=== PATIENT | female | born 1960 | race Caucasian/White ===

== ENCOUNTER 2016-10-22 14:50 | Inpatient (IN) | payer BC ==
[~2016-10-22] VITALS: Ht 139.7 cm; Wt 78.0 kg
--- NOTE | ~2016-10-22 | CATH ---
Cardiac Diagnostic Report Demographics Patient Name CHARU Hernández Gender Female Date of 1960 Age 56 year(s) Patient Number [id number] Date of Study 10/23/2016 Visit Number [id number] Room Number 407 Corporate ID Ht 134.62 cm Wt 77.56 kg Accession Number [id number] BSA 1.6 m Referring King Melchor Danielson MD Primary Physician Physician Performing King Melchor Danielson MD Secondary Physician Physician Diagnostic King Melchor Danielson MD Assisting Physician Physician Interventional Physician [place] Polisher Physician Findings and Conclusions Diagnostic Findings and Conclusion Mild Aortic stenosis. Non-obstructive CAD. Diagnostic Recommendations Medical management. Procedure Description The patient was brought to the diagnostic cardiac catheterization laboratory in the fasting, non-sedated state. Informed consent was obtained in the written and verbal form after the risks and benefits were explained. The patient had no further questions and agreed to proceed. The planned puncture-incision site(s) were shaved and prepped with ChloraPrep and draped in the usual sterile manner. Conscious sedation, supplemental oxygen, and pain control medications were delivered by a registered nurse under physician guidance. Surface ECG rhythm, blood pressure measurement, and pulse oximetry were monitored throughout the procedure. Arterial access. The right radial access site was infiltrated with lidocaine. The right radial vessel was entered with the Seldinger technique. A 6F radial sheath was advanced into the vessel and used for catheter placement. Selective left coronary angiography. A catheter was advanced into the left coronary vessel ostium under Fluoroscopic guidance. Contrast was injected by hand. Images were obtained in multiple projections. Selective right coronary angiography. A catheter was advanced into the right coronary vessel ostium under fluoroscopic guidance. Contrast was injected by hand. Images were obtained in multiple projections. Left heart catheterization. A catheter was advanced across the aortic valve to the left ventricle under fluoroscopic guidance. Resting hemodynamics were obtained. Arterial artery hemostasis was achieved using a TR band. The patient was transferred to a regular nursing floor via cart accompanied by a nurse. The patient left the laboratory in stable condition. Diagnostic Cath Status: Urgent Procedure Procedure Type Diagnostic procedure:Ventriculogram:, Left, Angiography:, Coronary Angios w/[facility] Indications: Hypertension, Carotid artery disease and Tobacco use-current. The procedure was explained in detail to the patient. Risks, complications and alternative treatments were reviewed. Written consent was obtained. Medications Reviewed with Patient prior to Procedure. Complications: No Complication. Angiographic Findings Dominance: Right Cardiac Arteries and Lesion Findings LMCA: Abnormal. Lesion on LMCA: Distal subsection.20% stenosis . LAD: Abnormal.luminal irregularities LCx: Abnormal. Lesion on Mid CX: 40% stenosis . Lesion on 2nd Ob Ale: Proximal subsection.70% stenosis . Comments:small vessel RCA: Normal (0% Stenosis). Coronary Tree Procedure Data Procedure Date Date: 10/23/2016Start: 11:06 AM Entry Locations - Percutaneous access was performed through the Right Radial artery (Primary location). A 6 Fr sheath was inserted. Hemostasis was successfully obtained using a TR band. Procedure Medications Order and Administration + + +-------+--------+ !Time !Medication !Dosage !Route ! + + +-------+--------+ !10/23/2016 !Oxygen !2 l/min!NC ! !11:02 AM ! ! ! ! + + +-------+--------+ !10/23/2016 !Versed !2 mg !I.V. ! !11:04 AM ! ! ! ! + + +-------+--------+ 10/23/2016 !Fentanyl !50 mcg !I.V. ! !11:04 AM ! ! ! ! + + +-------+--------+ !10/23/2016 !Sodium Chloride !10 ml !I.V. ! !11:05 AM ! ! ! ! + + +-------+--------+ !10/23/2016 !Versed !1 mg !I.V. ! !11:07 AM ! ! ! ! + + +-------+--------+ !10/23/2016 !Fentanyl !25 mcg !I.V. ! !11:07 AM ! ! ! ! + + +-------+--------+ !10/23/2016 !SF Radial Cocktail: 200mcg Nitro, 2.5 mg ! !I.A. ! !11:09 AM !Verapamil, 5000u Heparin ! ! ! + + +-------+--------+ Devices Used - A6F TIG CATHETER. Comments: coronary angiograms. - ACATH 6FR FL3.5 CATHETER 100CMwas used for:Left coronary angiography. Contrast Material - Isovue 07129 ml Fluoroscopy Time: Diagnostic: 2:06 minutes. Total: 2:06 minutes. Fluoroscopy Dose: Diagnostic: 374 mGy. Total: 374 mGy. Estimated Blood Loss: 10 ml. Medical History Allergies - No known allergies. Risk Factors The patient risk factors include:peripheral arterial disease, hypertension, last creatinine: 0.9 mg/dl, creatinine clearance: 87.5 ml/min and Current/Recent(w/in 1 year) tobacco use. Admission Data Admission Date: 10/23/2016 Admission Time: 11:25 AM Insurance Payors: [employer] insurance. Clinical Evaluation Leading to Procedure Diagnosed on 10/23/2016 12:00 AM. - The patient's CAD presentation was assessed as: Non-STEMI. VA LV function assessed as:Normal. Ejection Fraction - 10/23/2016 - Method: LV gram. EF%: 60. Hemodynamics Condition: Rest O2 Consumption: Estimated: 160.12Heart Rate: 79 bpm Pressures (mmHg) +-----+ + !Site !Pressure ! +-----+ + !LV !147/5 ,12 ! +-----+ + !AO !123/64 (88) ! +-----+ + !LV !150/7 ,12 ! +-----+ + !AO !104/60 (76) ! +-----+ + Valve Gradients and Areas + +---------+---------+---------+ +---------+ + !Valve !Peak !Mean !Area !Index !Flow !Source ! + +---------+---------+---------+ +---------+ + !Aortic !28 !24 ! ! ! ! ! + +---------+---------+---------+ +---------+ + !Aortic !28 !24 ! ! ! ! ! + +---------+---------+---------+ +---------+ + Shunts Oxygen Values O2 Capacity 194.48 O2 Consumption 160.12 Discharge Data Discharge Date: 10/24/2016 Hospital Status: Inpatient Signatures
--- NOTE | ~2016-10-22 | ECH ---
Transthoracic Echocardiography Report (TTE) Demographics Patient Name HOME BOX Date of Study 10/23/2016 Patient Number [id number] Visit Number [id number] Date of 1960 Room Number 407 Accession Number [id number] Gender Female Age 56 year(s) Referring Patel VAUGHN Site Worker Renetta Patel Physician Corey ALONSO Alvarez Physician Interpreting Clinton Medeiros MD Nurse Esthetician Physician Supervising Ordering Physician King Melchor Danielson MD, MD/P Nurse Stress Leak Inspector Conclusions Summary Technically adequate exam. The estimated left ventricular ejection fraction is 55%. The left ventricle is mildly dilated . Mild concentric left ventricular hypertrophy. The left atrium is moderately dilated by LA volume index measurement. There is evidence of a patent foramen ovale by color Doppler. Informed consent was obtained, bubble study was done, there is no evidence for a PFO or ASD. Mild mitral valve stenosis. The mean gradient is 8 mmHg. Mild-moderate mitral regurgitation by color Doppler. The aortic valve was not well imaged. There is mild aortic stenosis by the Continuity Equation. The peak velocity is 2.4 m/s, the mean gradient is 13 mmHg, and the valve area based on the continuity equation is 1 cm2, stroke volume index is 29 ml/m2. Peak velocity obtained in apical view. There is no aortic regurgitation by color Doppler. Mild-moderate eccentric tricuspid regurgitation by color Doppler. There is moderate pulmonary hypertension. The pulmonary pressure (RVSP) is 48 mmHg. Procedure Type of Study TTE procedure:Echo Complete SF. Procedure Date Date: 10/23/2016 Start: 02:15 PM Technical Quality: Adequate visualization Indications:Chest pain, Elevated Troponin and Hypertension. Additional Indications:NSTEMI Appropriate Use Criteria: 9 Height: 53 inches Weight: 171 pounds BSA: 1.6 m Rhythm: NSR HR: 87 bpm BP: 138/85 mmHg Allergies - No known allergies. M-Mode/2D Measurements LV Diastolic Dimension: 5.31 cm LV Systolic Dimension: 3.18 cm LV Septum Diastolic: 0.98 cm LV PW Diastolic: 0.95 cm AO Root Dimension: 2.85 cm Cardiac Output: 4.02 l/min LA Dimension: 3.4 cm Cardiac Index: 2.51 l/min*m RV Diastolic Dimension: 2.2 cm LA volume index: 47 ml/m LVOT: 1.76 cm LVOT VTI: 19.02 cm RV Base: 2.4 cm LV Stroke volume: 46.25 ml RV Mid: 1.3 cm LV Stroke volume index: 28.91 ml/m TAPSE: 2.4 cm TDI-S': 11 cm/s Doppler Measurements AV Peak Velocity: 2.4 m/s MV Peak E-Wave: 2.07 m/s AV Peak Gradient: 23.04 mmHg MV Peak A-Wave: 1.36 m/s AV Mean Gradient: 13.49 mmHg MV E/A Ratio: 1.53 LVOT Peak Velocity: 0.86 m/s MV P1/2t: 106 msec AV Area (Continuity):1.02 cm TR Velocity:3.34 m/s MV Deceleration Time: 365.4 msec TR Gradient:44.62 mmHg MV Area (PHT): 2.08 cm Estimated RAP:3 mmHg PV Peak Velocity: 0.92 m/s Estimated RVSP: 48 mmHg PV Peak Gradient: 3.42 mmHg E' Septal Velocity: 0.08 m/s Estimated PASP: 47.62 mmHg E' Lateral Velocity: 0.11 m/s A' Septal Velocity: 0.06 m/s A' Lateral Velocity: 0.05 m/s RA Area: 14.97 cm Findings Left Ventricle The left ventricle is mildly dilated . Mild concentric left ventricular hypertrophy. Diastolic assessment reveals normal relaxation. Right Ventricle Normal right ventricle structure and function. Left Atrium The left atrium is moderately dilated by LA volume index measurement. There is evidence of a patent foramen ovale by color Doppler. Informed consent was obtained, bubble study was done, there is no evidence for a PFO or ASD. Right Atrium Normal right atrial size. Mitral Valve Mild mitral valve stenosis. The mean gradient is 8 mmHg. Mild-moderate mitral regurgitation by color Doppler. Aortic Valve The aortic valve was not well imaged. There is mild aortic stenosis by the Continuity Equation. The peak velocity is 2.4 m/s, the mean gradient is 13 mmHg, and the valve area based on the continuity equation is 1 cm2, stroke volume index is 29 ml/m2. Peak velocity obtained in apical view. There is no aortic regurgitation by color Doppler. Tricuspid Valve Normal tricuspid valve structure and function. Mild-moderate eccentric tricuspid regurgitation by color Doppler. There is moderate pulmonary hypertension. The pulmonary pressure (RVSP) is 48 mmHg. Pulmonic Valve The pulmonic valve is not well visualized. Trivial pulmonic valve regurgitation by color Doppler. Pericardial Effusion No evidence of pericardial effusion. Miscellaneous Visualized portions of the aortic root and ascending aorta appear normal in size. Pleural Effusion No evidence of pleural effusion. Signature
--- NOTE | 2016-10-24 08:58 | HP ---
ADMIT: 10/22/2016 RM/LOC: 407 [facility] MR#: [id number] [id number] [place], [place] [address] [address] [place] [id number] History and Physical SEX: F AGE: 56 : 1960 DATE OF SERVICE: CHIEF COMPLAINT: Elevated blood pressure. HISTORY OF PRESENT ILLNESS: Ms. Whitley is a 56-year-old female, who generally sees one of the nurse practitioners in our clinic as well as her note teller, who presented to the Emergency Department yesterday evening with elevated blood pressures. She has a significant past medical history for carotid vascular disease and sees Dr. Ashley for this. She has been on Plavix, but she has not been following up and therefore, ran out of her medication about two weeks ago. She did get a temporary supply sent to the pharmacy, but she did not go pick it up. She also continues to smoke. She said she was in her usual state of health until yesterday morning when she woke up, and felt like her heart was pounding and beating fast. She checked her blood pressure and it was 180 systolic. She called into work and tried to rest, but the symptoms did not improve, therefore she presented to the Emergency Department. Upon evaluation, she was given nitroglycerin. This did not improve her symptoms including her blood pressure. She actually denies any chest pain. 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 She has no diaphoresis or nausea as well. She was given IV metoprolol as well as oral lisinopril, and blood pressures did improve. Symptoms are better this morning. There was also concern that she had a PE, so a CTA was performed at the Emergency Department and was negative. Currently this morning, she feels better, just fatigue. PAST MEDICAL HISTORY: 1. Carotid stenosis, status post what appears to be bypass but awaiting Cardiology records to confirm. 2. Tobacco abuse. Of note, she denies any past medical history of hypertension. MEDICATIONS: Plavix 75 mg daily, of which she has been noncompliant for the past two weeks. ALLERGIES: NO KNOWN MEDICAL ALLERGIES. SOCIAL HISTORY: The patient lives independently and is able to care for all of her activities of daily living. She does continue to smoke. FAMILY HISTORY: Unknown. REVIEW OF SYSTEMS: As per HPI. Otherwise, reviewed and negative. PHYSICAL EXAMINATION: VITAL SIGNS: Currently with temperature of 98.8, pulse 76, respiratory rate 16, blood pressure 138/85, oxygen saturation 97% on room air. In the Emergency Department, of note, her blood pressure reached a maximum of 204/121 with a heart rate of 102. GENERAL: The patient is awake, alert, in no acute distress. ADMIT: 10/22/2016 RM/LOC: 407 [facility] MR#: [id number] [address] [place], [place] [id number] [address] [place] [id number] History and Physical SEX: F AGE: 56 : 1960 HEENT: Within normal limits. Nasal cannula is in place. HEART: Regular rate and rhythm. No murmurs. LUNGS: Diminished with few crackles at the bases. EXTREMITIES: Warm and dry. No pretibial edema. ABDOMEN: Soft, nontender, nondistended. Normal bowel sounds. NEUROLOGIC: Cranial nerves II through XII grossly intact. No focal neurologic deficit. PSYCHIATRIC: Mood and affect are within normal limits. LABORATORY DATA: Please see electronic record for full details, but of note, her initial troponin was 0.79. EKG shows sinus rhythm with a heart rate of 88. IMAGING: CTA shows findings consistent with bronchitis, but negative for PE. Chest x-ray shows no other changes. ASSESSMENT AND PLAN: 1. Hypertensive urgency. This has improved with just IV metoprolol as well as initiating oral lisinopril. 2. Elevated troponin concerning for non ST elevation versus cardiac demand from her hypertensive crisis. 3. Tobacco abuse. 4. Carotid vascular disease. 5. Noncompliance with her Plavix. DISPOSITION: Cardiology has been consulted and appreciate their recommendations and further cardiac workup today. Tobacco cessation was strongly encouraged. Tyra Monge MD/ joselito JOB #: [id number] CC: Tyra Monge, Attending Physician Tyra Monge, Family Physician
--- NOTE | 2016-10-24 11:08 | ER ---
ADMIT: 10/22/2016 RM/LOC: 407 [facility] MR#: [id number] [id number] [place], [place] [address] [address] [place] [id number] Emergency Room Report SEX: F AGE: 56 : 1960 DATE: 10/22/2016 ADDENDUM: This patient comes into the ER because this morning she woke up with a sudden onset of shortness of breath. She states that she became short of breath and had palpitations that she could feel at times her heart was pounding. 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 She states that she just has a general feeling of not feeling well. In the emergency room, initially her vitals were stable. She had a normal pulse, and O2 sat was 98%. Her troponin came back at 0.791 and CK-MB was 5.0. I had concerns for a PE since she is a smoker and she had sudden onset of her symptoms. CTA was negative for PE. While in the ER, her blood pressure did rise and was about 200/115. I did consult with Dr. Manning concerning treatment of this patient. She was given nitroglycerin that was repeated, which really did not bring down her blood pressure then I ordered Lopressor 5 mg IV. I spoke with Dr. Monge, and this patient will be admitted by her. DIAGNOSES: 1. Shortness of breath. 2. Elevated troponin. 3. Hypertension. Please see my T-sheet. GARY Monterroso / Frank Manning MD / lexil JOB #: [id number] CC: Tyra Monge MD, Attending Physician Pau Fernandez, Family Physician
[2016-10-25] MEDS ORDERED: NITROSTAT0.4 MG SL (16:53)
[2016-10-25] MEDS ORDERED: LIPITOR DPS20 MG PO (16:53)
[2016-10-25] MEDS ORDERED: ASA CHILDREN'S81 MG PO (16:53)
[2016-10-25] MEDS ORDERED: ZESTRIL DPS10 MG PO (16:53)
[2016-10-25] MEDS ORDERED: TYLENOL DPS325 MG PO (16:53)
[2016-10-25] MEDS ORDERED: COREG DPS6.25 MG PO (16:53)
[2016-10-25] MEDS ORDERED: PLAVIX75 MG PO (16:53)
[2016-10-25] MEDS ORDERED: CHANTIX0.5 MG (16:54)
--- NOTE | 2016-10-27 08:38 | DS ---
ADMIT: 10/23/2016 RM/LOC: 407 [facility] MR#: [id number] [address] [place], [place] [address] [facility] [address] [place] [address] Discharge Summary SEX: F AGE: : ADMISSION DATE: 10/23/2016 DISCHARGE DATE: 10/24/2016 CONSULT: Cardiology, Melchor Melgar MD DISCHARGE DIAGNOSES: 1. Non-STEMI (ST elevation myocardial infarction). 2. Coronary artery disease. 3. Chronic hypertension. 4. Dyslipidemia. 5. Tobacco abuse. 6. Known bicuspid aortic valve and coarctation. 7. Known carotid stenosis status post bypass. 8. Noncompliance. PROCEDURES: Cardiac catheterization October 23, [address] Melgar. REASON FOR ADMISSION: The patient was admitted with shortness of breath and elevated blood pressure. Please see H and P for full details. HOSPITAL COURSE: The patient was admitted to telemetry monitoring for cardiac rule out. By the time of admission, she was without chest pain, just had some fatigue. Cardiac enzymes were trended, and her troponin did increase. It was 0.79 on admission and reached a maximum of 1.33 before trending down and was 1.05 at last check. EKG showed no ST elevation. Cardiology was consulted and recommended cardiac catheterization, which was performed on October 23, 2016. There was mild coronary artery disease but nothing that required a PCI or a CABG. Medication management was recommended, and she was initiated on NEISHA inhibitor, beta jared, aspirin, and statin. We will continue with her home Plavix. She was symptom free by day of discharge. DISCHARGE MEDICATIONS: 1. Aspirin 81 mg daily. 2. Coreg 6.25 mg b.i.d. 3. Lipitor 20 mg daily. ADMIT: 10/23/2016 RM/LOC: 407 [facility] MR#: [id number] [address] [address] [address] [place] [address] Discharge Summary SEX: F AGE: : 6. Plavix 75 mg daily. 5. Zestril 10 mg daily. 6. Tylenol p.r.n. 7. Nitroglycerin sublingual p.r.n. DISCHARGE INSTRUCTIONS: The patient was discharged to home in stable condition. She will continue with cardiac diet. She will follow up with myself in 2 weeks and Cardiology as ordered. Smoking cessation was also encouraged, and she was agreeable to initiation of Chantix. This will be begun as an outpatient. Routine chest pain precautions were reviewed. Greater than 30 minutes was spent in discharge. Tyra Monge MD/ ajf JOB #: [id number] CC: Tyra Monge MD, Attending Physician Tyra Monge MD, Family Physician
--- NOTE | 2016-10-29 14:02 | CO ---
ADMIT: 10/22/2016 RM/LOC: [facility] MR#: [id number] [address] [address] [facility] [address] [place] [id number] Consultation SEX: F AGE: 56 : 1960 DATE OF CONSULTATION: 10/23/2016 ATTENDING PHYSICIAN: Tyra Monge CONSULTING PHYSICIAN: Melchor Melgar MD REASON FOR CONSULTATION: Elevated troponin. MONA Joshi dictating for Dr. Melgar. HISTORY OF PRESENT ILLNESS: The patient is a pleasant 56-year-old female, whom I had the opportunity to consult for Cardiology regarding her elevated troponins. The patient has a personal cardiac history. The patient states she has a history of coarctation of the aorta, bicuspid aortic valve, unmedicated hypertension, dyslipidemia, and tobacco abuse. The patient states that yesterday 10/22, she woke up around 07:30 a.m. with shortness of breath, pounding chest, and elevated blood pressure. The patient states that she tried changing positions and trying to go back to sleep, but this did not relieve her symptoms. Later that morning, she called her PCP in the clinic and they encouraged her to go to the Emergency Department. Around 02:30 p.m. on 10/22, she arrived at [facility] Emergency Department. She states that the symptoms she was having did not go away until after she received three tablets of nitroglycerin. The patient only takes Plavix as her current medications, but she has not been taking this for the last couple weeks because she ran out and has not been able to go in to the pharmacy to lease picker her new prescription. At this time, she is wearing oxygen because she was desaturated and she normally does not wear oxygen at home. She admits that she has never had any symptoms like this before. The patient was last seen in [facility] with Dr. Sweeney in 2014. At that time, the patient was being seen for carotid disease, carotid postop, and status post left carotid subclavian bypass. It was noted that her status post left carotid subclavian bypass was resolved. She was to have a carotid duplex follow up in one year. She was also having headaches at that time, which were assumed to be from tension headache. The patient has not followed up with the [facility] since then. PAST MEDICAL HISTORY: Significant for: 1. Coarctation of the aorta. 2. Unmedicated hypertension. 3. Bicuspid aortic valve. 4. Dyslipidemia. 5. Tobacco abuse. 6. Alcoholism. 7. Mitral regurgitation. 8. Left subclavian artery occlusion. 9. Carotid occlusive disease. ADMIT: 10/22/2016 RM/LOC: [facility] MR#: [id number] [address] [place] [id number] [address] [facility] [place] [address] Consultation SEX: F AGE: 56 : 1960 PAST SURGICAL HISTORY: Includes: 1. Two neck surgeries. 2. Appendectomy. 3. Tonsillectomy. 4. RICARDO-BSO. 5. Three vaginal deliveries. 6. Tubal ligation. 7. The patient has also had a left common carotid subclavian bypass and coarctation of the aorta repair at age 8. FAMILY HISTORY: Patient admits to diabetes mellitus in her brother. Her father had prostate cancer. Her grandmother had a pacemaker. Her maternal grandmother and mother have hypertension, and her mother also has COPD. SOCIAL HISTORY: The patient is currently and lives with her . She has been for 37 years with the period that she was from her for 5 years. The patient is currently employed at [employer] in [employer]. She consumes a regular diet. She admits to drinking two cups of coffee per day. She admits to consuming 5 to 6 alcoholic beverages two days per week. The patient has a 40-pack year tobacco use history. The patient denies any drug use. ALLERGIES: NO KNOWN DRUG ALLERGIES. SHE DOES HAVE SEASONAL ALLERGIES. MEDICATIONS: Home medications consist of: 1. Clopidogrel 75 mg daily. 2. Ibuprofen 325 mg p.r.n. REVIEW OF SYSTEMS: Per Dr. Melgar. GENERAL: Denies fever, chills, sweats, rash, or weight loss. The patient has been tiring easily in the last few days. EYES: Denies double vision, cataracts, or glaucoma. The patient has noticed blurry visions and floaters in her eyes. ENT: Denies hearing loss or problems with nose, mouth or throat. PULMONARY: Denies cough, sputum production, asthma, emphysema or bronchitis. The patient admits to wheezing, snoring loudly, waking up multiple times a night, and tiring first thing in the morning. GASTROINTESTINAL: Denies difficulty swallowing. No change in bowel habits. Denies dark or bloody stools. No history of ulcers, hiatal hernia, or gallbladder or liver disease. The patient admits to heartburn. GENITOURINARY: Denies dysuria, hematuria, nocturia, urinary tract infection, or kidney stones. Denies history of renal insufficiency or failure. MUSCULOSKELETAL: Denies history of arthritis or gout. Denies muscle or joint pains. ENDOCRINE: Denies history of thyroid dysfunction or diabetes. HEMATOLOGIC: Denies history of anemia, easy bruising, or cancer. NEUROLOGIC: Denies chronic dizziness, syncope, stroke, seizures or numbness or tingling. The patient admits to chronic headaches. PSYCHIATRIC: The patient admits to anxiety. ADMIT: 10/22/2016 RM/LOC: [facility] MR#: [id number] [address] [place] [id number] [address] [address] Consultation SEX: F AGE: 56 : 1960 PHYSICAL EXAMINATION: Per Dr. Melgar. VITAL SIGNS: Temperature 98.8, pulse 76, respirations 16, BP is 138/85, oxygen saturation is 97% on 2 L of oxygen. Weight is currently 171 pounds. Intake/output is 1700/600 with a positive 1100 fluid retention. SKIN: [place]art, warm and dry. EYES: Sclerae clear. No xanthelasmas. ENT: Oral mucosa is pink and moist. No jugular venous distention or carotid bruits. LUNGS: Diminished bilateral sounds with expiratory wheezes. HEART: Regular rate and rhythm. Normal S1, S2. No rubs or gallops. A 2/6 systolic ejection murmur was audible. ABDOMEN: Soft and nontender. MUSCULOSKELETAL: Gait is normal. EXTREMITIES: Peripheral pulses palpable. No clubbing, cyanosis or edema. PSYCHIATRIC: Alert and oriented. Mood and affect are appropriate. ASSESSMENT: Per Dr. Melgar. 1. Non-ST segment elevation myocardial infarction. 2. Pulmonary lung disease. 3. Carotid disease. 4. Tobacco abuse. PLAN: Her symptoms worry me for coronary artery disease. We will do a heart cath this morning. The patient needs to quit smoking. We will also check an echocardiogram. We will increase her medications for her blood pressure. We will also need to add a statin and aspirin to her regimen. Thank you for the Cardiology consult. I have read and agreed with the documentation has been completed regarding this visit. By signing this record, I attest that the documentation was completed in my physical presence and is an accurate record of the encounter. GARY Joshi Student / Melchor Melgar MD / [email or web address] JOB #: [id number] CC: Tyra Monge, Attending Physician Tyra Monge, Family Physician
--- NOTE | 2016-10-29 14:07 | CO ---
ADMIT: 10/22/2016 RM/LOC: [facility] MR#: [id number] [address] [address] [address] [place] [id number] Consultation SEX: F AGE: 56 : 1960 DATE OF CONSULTATION: 10/23/2016 ATTENDING PHYSICIAN: Tyra Monge CONSULTING PHYSICIAN: Melchor Melgar MD ADDENDUM: PLAN: Risks for the heart catheterization were discussed with the patient. Risks including, but not limited to, bleeding and vascular trauma, CO, stroke, renal failure, and even a small risk of . GARY Joshi Student / Melchor Melgar MD / lexil JOB #: [id number] CC: Tyra Monge, Attending Physician Tyra Monge, Family Physician
== END 2016-10-24 11:00 | disposition home or self-care (01) | DRG 281 ==
LOC: ER 14:50 → 4PCU 18:00
PROVIDERS: ADMIT Family Medicine
PROC: B2151ZZ Fluoroscopy of Left Heart using Low Osmolar Contrast (ICD-10-PCS; principal; 2016-10-23)
PROC: B2111ZZ Fluoroscopy of Multiple Coronary Arteries using Low Osmolar Contrast (ICD-10-PCS; principal; 2016-10-23)
PROC: 4A023N7 Measurement of Cardiac Sampling and Pressure, Left Heart, Percutaneous Approach (ICD-10-PCS; principal; 2016-10-23)
DX: I21.4 Non-ST elevation (NSTEMI) myocardial infarction (principal); Z68.41 Body mass index [BMI] 40.0-44.9, adult; Q25.1 Coarctation of aorta; I73.9 Peripheral vascular disease, unspecified; I65.29 Occlusion and stenosis of unspecified carotid artery; E66.01 Morbid (severe) obesity due to excess calories; F17.210 Nicotine dependence, cigarettes, uncomplicated; I16.0 Hypertensive urgency; I10 Essential (primary) hypertension; R09.02 Hypoxemia; I25.10 Atherosclerotic heart disease of native coronary artery without angina pectoris; J98.6 Disorders of diaphragm; E78.5 Hyperlipidemia, unspecified; I08.0 Rheumatic disorders of both mitral and aortic valves; J98.4 Other disorders of lung; Z91.128 Patient's intentional underdosing of medication regimen for other reason; Z95.828 Presence of other vascular implants and grafts